=== PATIENT | female | born 1970 | race Caucasian/White ===

== ENCOUNTER → 2016-10-13 | Outpatient (CLI) | payer OTHER | LOC: EROP 08:44 | DX: Z02.1 Encounter for pre-employment examination (principal) | CPT/HCPCS: 86706 ==

== ENCOUNTER → 2016-11-12 | Outpatient (CLI) | payer OTHER | LOC: LAB 13:25 | DX: Z02.1 Encounter for pre-employment examination (principal) | CPT/HCPCS: 86706 ==

== ENCOUNTER → 2016-11-17 | Outpatient (CLI) | payer BC ==
[2016-11-17 10:20] LABS: BUN/CREATININE RATIO 28 (0-10)
== END ==
LOC: LAB 08:40
PROVIDERS: Family Medicine
DX: M54.9 Dorsalgia, unspecified (principal); M54.2 Cervicalgia; E78.5 Hyperlipidemia, unspecified; E55.9 Vitamin D deficiency, unspecified; M50.322 Other cervical disc degeneration at C5-C6 level
CPT/HCPCS: 72050; 72072; 80053; 80061

== ENCOUNTER → 2020-10-06 | Outpatient (CLI) | payer BC ==
[2020-10-06 08:04] LABS: HEMOGLOBIN 12.7 gm/dl (12.3-15.3); RED BLOOD COUNT 4.06 M/UL (4.00-5.10); WHITE BLOOD COUNT 6.4 K/UL (4.5-11.0)
[2020-10-06 08:16] LABS: BUN/CREATININE RATIO 24 (0-10)
== END ==
LOC: LAB 07:29
PROVIDERS: Family Medicine
DX: E55.9 Vitamin D deficiency, unspecified (principal); E78.5 Hyperlipidemia, unspecified
CPT/HCPCS: 80053; 80061; 85027

== ENCOUNTER → 2021-04-30 | Outpatient (CLI) | payer BC ==
[2021-04-30 12:39] LABS: HEMOGLOBIN 13.9 gm/dl (12.3-15.3); RED BLOOD COUNT 4.28 M/UL (4.00-5.10); WHITE BLOOD COUNT 5.5 K/UL (4.5-11.0)
[2021-04-30 13:09] LABS: BUN/CREATININE RATIO 19 (0-10)
== END ==
LOC: LAB 11:38 → RT 11:38
PROVIDERS: Family Medicine
DX: Z01.812 Encounter for preprocedural laboratory examination (principal); E78.5 Hyperlipidemia, unspecified; E55.9 Vitamin D deficiency, unspecified
CPT/HCPCS: 36415; 80048; 80061; 85027; 93005

== ENCOUNTER → 2022-01-21 | Outpatient (CLI) | payer BC | LOC: LAB 14:45 | DX: R30.0 Dysuria (principal) | CPT/HCPCS: 81001; 87077; 87086; 87186 ==

== ENCOUNTER → 2022-03-20 | Outpatient (CLI) | payer BC ==
[2022-03-20 08:25] LABS: HEMOGLOBIN 13.7 gm/dl (12.3-15.3); RED BLOOD COUNT 4.31 M/UL (4.00-5.10); WHITE BLOOD COUNT 5.9 K/UL (4.5-11.0)
[2022-03-21 08:14] LABS: CORTISOL 9.7 ug/dL (.); VITAMIN D, 25-HYDROXY 55.2 ng/mL (30.0-100.0)
[2022-03-21 09:14] LABS: FSH 74.5 mIU/mL (.)
[2022-03-21 12:14] LABS: ESTRADIOL 13.6 pg/mL (.); LUTEINIZING HORMONE(LH) 42.7 mIU/mL (.)
== END ==
LOC: LAB 08:01
PROVIDERS: Advanced Practice Midwife
DX: N95.1 Menopausal and female climacteric states (principal); R23.2 Flushing
CPT/HCPCS: 36415; 82533; 82607; 82670; 83001; 83002; 84439; 84443; 85025